=== PATIENT | male | born 1950 | race Caucasian/White ===

== ENCOUNTER → 2024-05-17 09:20 | Outpatient (REF) | payer OTHER, SELFPAY ==
--- NOTE | 2024-05-17 10:45 | CARDSERVLU ---
Echocardiogram with Lumason completed after protocol screening completed. Allergies verified.
Patent IV site: _R AC ____
IV site flushed with 0.9% NaCl pre and post administration.
Diluted bolus method utilized to enhance visualization of ventricular lopez.
Total volume given: __4.5__ mL
Patient tolerated all procedures well without complications.
== END ==
LOC: RCS 09:20
PROVIDERS: ATTENDING PHYSICIAN Internal Medicine Cardiovascular Disease; FAMILY PHYSICIAN Internal Medicine
DX: R93.1 Abnormal findings on diagnostic imaging of heart and coronary circulation (principal)
CPT/HCPCS: 93017; 93350; Q9950

== ENCOUNTER → 2024-10-26 12:11 | Outpatient (REF) | payer OTHER, SELFPAY | LOC: RAD 12:11 | PROVIDERS: ATTENDING PHYSICIAN Internal Medicine | DX: R06.2 Wheezing (principal); R53.83 Other fatigue | CPT/HCPCS: 71046 ==